=== PATIENT | male | born 1955 | race Caucasian/White ===

== ENCOUNTER 2022-08-12 10:16 | Emergency (ER) | payer MEDICARE, SELFPAY ==
--- NOTE | ~2022-08-12 | XR_ITS ---
Left foot Technique: AP, oblique, and lateral views were obtained. Clinical History: Pain Findings: No acute fracture or dislocation is seen. There is minimal degenerative change at the first metatarsophalangeal joint. Soft tissues are unremarkable. 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 Reviewed, dictated and finalized at [facility]. 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
[2022-08-12 10:31] VITALS: BP 163/77; PULSE 70; RESP 16; TEMP 36.9; O2SAT 99
--- NOTE | 2022-08-12 10:53 | ED.LOWEXIN ---
HPI - Extremity Injury (Lower) General Chief Complaint: Extremity Injury, Lower Stated Complaint: Left Foot Pain Time Seen by Provider: 08/12/22 10:53 Source: patient, RN notes reviewed and old records reviewed Mode of arrival: ambulatory Limitations: no limitations History of Present Illness HPI Narrative: 66 year old male who presents to [facility] with complaints of injury to the dorsal aspect of his left foot when a tree limp fell on his foot yesterday afternoon. Patient reports discomfort to the dorsal aspect of his left foot and to the arch area also. He does have small area of bruising and erythema to the dorsal left foot with no obvious deformity to his foot noted, pedal pulse of strong quality to left foot. Patient is able to apply weight bearing to left foot with minimal increase in discomfort.. MD complaint: foot injury (left) Onset (ago): day(s) (1) Type of Injury: other (contusion) Severity scale (1-10): 2 Treatments prior to arrival: other (none) Related Data Home Medications Medication Instructions Recorded Confirmed No Home Medications 08/12/22 08/12/22 Allergies Allergy/AdvReac Type Severity Reaction Status Date / Time No Known Allergies Allergy Verified 08/12/22 10:47 Review of Systems Review of Systems: CONSTITUTIONAL: Denies fever, chills, or sweats. EYES: Denies visual changes, redness, or discharge. ENT: Denies rhinorrhea, congestion, sore throat, or otalgia. CARDIOVASCULAR: Denies chest pain, palpitations, or edema. RESPIRATORY: Denies cough or dyspnea. GASTROINTESTINAL: Denies abdominal pain, nausea, vomiting, or diarrhea. GENITOURINARY: Denies dysuria or hematuria. SKIN: Denies rash or itching. MUSCULOSKELETAL: Denies back pain, pain to dorsal aspect left foot, or myalgia. NEUROLOGIC: Denies headache, numbness, or weakness. PSYCHIATRIC: Denies anxiety or depression. All systems reviewed & are unremarkable except as noted in HPI and below PMFSH Past Medical History Medical History (Updated 08/13/22 @ 17:27 by Paola Odell NP) No pertinent past medical history Surgical History Surgical History (Updated 08/13/22 @ 17:27 by Paola Odell NP) No history of previous surgery Social History Social History (Updated 08/13/22 @ 17:24 by Paola Odell NP) Smoking status: Never smoker Alcohol intake: unknown Substance use type: does not use Living arrangements: with family Gender identity (if verbalized by the patient): Male Comments At time of signature, agree with nursing past medical, surgical, social and family history. There is no relevant family history pertinent to the presenting complaint Exam Narrative: GENERAL: Well-appearing, well-nourished, and in no acute distress. HEAD: Normocephalic, atraumatic. EYES: PERRLA and EOMI. ENT: Nares clear, no rhinorrhea or epistaxis. Mucous membranes moist. NECK: Supple.no lymphadenopathy CHEST: Clear to auscultation. No respiratory distress.SAO2 99% on room air HEART: Regular rate and rhythm. No murmur heard. Normal peripheral pulses. ABDOMEN: Soft, nontender, nondistended, normal active bowel sounds. EXTREMITIES: Normal range of motion. No edema.Exception noted to minimal swelling and bruising to dorsal aspect of left foot, strong pedal pulse present, nail beds have brisk capillary refill, mobility intact SKIN: Warm, dry, no rash. NEURO: No focal deficits. Alert and oriented x3. Course Course Emergency Course: Patient is aware of diagnosis, understands and agrees to treatment plan.? Anticipatory guidance given.? Patient agrees to follow-up as directed and is aware of reasons to seek care at the emergency department. Portions of this record may have been created with voice recognition software Level of Care: Express Care Visit Vital Signs Vital signs: Vital Signs Temperature 36.9 C 08/12/22 10:31 Pulse Rate 70 08/12/22 10:31 Respiratory Rate 16 08/12/22 10:31 Blood Pressure 163/77
== END 2022-08-12 11:08 | disposition home or self-care (01) ==
PROVIDERS: Emergency Provider Registered Nurse
DX: S90.32XA Contusion of left foot, initial encounter (principal); W20.8XXA Other cause of strike by thrown, projected or falling object, initial encounter
CPT/HCPCS: 73630; 99213; G0463